=== PATIENT | male | born 1955 | race Caucasian/White ===

== ENCOUNTER 2018-08-28 09:34 | Outpatient (CLI) | payer MEDICARE ==
--- NOTE | 2018-08-28 11:27 | ULT ---
US Abdominal Aorta History: [Abdominal aortic aneurysm screening] Comparison: None. Findings: Real-time grayscale, color, and spectral analysis of the abdominal aorta was performed. The proximal aorta measures up to 2.6 cm. The mid aorta measures up to 1.8 cm. The distal aorta measu res up to 1.8 cm. Iliac vessels are normal. Impression: No evidence for aneurysmal dilatation of the aorta.
== END 2018-08-28 09:35 | disposition home or self-care (01) ==
LOC: ULT 09:34 → MERGE 10:00
PROVIDERS: ATTEND Family Medicine
DX: Z13.6 Encounter for screening for cardiovascular disorders (principal)
CPT/HCPCS: 76775

== ENCOUNTER 2022-04-25 12:24 | Outpatient (CLI) | payer MEDICARE | END 2022-04-25 12:25 | disposition home or self-care (01) | LOC: MRI 12:24 | PROVIDERS: ATTEND Family Medicine | DX: R26.89 Other abnormalities of gait and mobility (principal); G93.89 Other specified disorders of brain; R90.82 White matter disease, unspecified; J34.89 Other specified disorders of nose and nasal sinuses; W19.XXXA Unspecified fall, initial encounter | CPT/HCPCS: 70551 ==

== ENCOUNTER 2024-02-27 13:50 | Outpatient (CLI) | payer MEDICARE | END 2024-02-27 13:51 | disposition home or self-care (01) | LOC: BICCT 13:50 | PROVIDERS: ATTEND Psychiatry & Neurology Neurology | DX: M48.061 Spinal stenosis, lumbar region without neurogenic claudication (principal); M47.816 Spondylosis without myelopathy or radiculopathy, lumbar region; M47.817 Spondylosis without myelopathy or radiculopathy, lumbosacral region; M47.815 Spondylosis without myelopathy or radiculopathy, thoracolumbar region | CPT/HCPCS: 72131 ==

== ENCOUNTER 2024-03-29 11:58 | Outpatient (CLI) | payer MEDICARE | END 2024-03-29 11:59 | disposition home or self-care (01) | LOC: ULT 11:58 | PROVIDERS: ATTEND Internal Medicine Cardiovascular Disease | DX: I50.22 Chronic systolic (congestive) heart failure (principal); I48.91 Unspecified atrial fibrillation; E78.5 Hyperlipidemia, unspecified; I70.213 Atherosclerosis of native arteries of extremities with intermittent claudication, bilateral legs | CPT/HCPCS: 93923 ==